=== PATIENT | female | born 1995 | race Caucasian/White ===

== ENCOUNTER 2016-08-16 19:06 | Inpatient (IN) | payer MEDICAID, OTHER ==
[~2016-08-16] VITALS: Ht 154.9 cm; Wt 63.6 kg
[2016-08-16 19:11] VITALS: BP 140/97; PULSE 100; RESP 20; O2SAT 96
[2016-08-16] MEDS ORDERED: BUPR150T12 PO (19:46)
[2016-08-16] MEDS ORDERED: ALPR0.254 PO (19:46)
--- NOTE | 2016-08-16 21:11 | ED.REPORT ---
HPI-Psychiatric Illness Date of Service Aug 16, 2016 ED Provider: Wojciech Ramirez DO A 20 year old female with a history of anxiety and depression presents to the ED with worsening depression, anxiety, and suicidal ideation onset five months ago. Two days [place] the patient [place], left a suicide note in her car, and almost jumped off the bridge but instead drove home. She attributes some of her suicidality to her fiance cheating on her one week ago and recently starting a new job. The patient also reports nausea, back pain, insomnia, and loss of appetite - she hasn't eaten in a week. The patient denies recently overdosing on medication, cutting her wrists, or other symptoms. She has never had a psychiatric admit. Nursing Notes Stated Complaint: MENTAL EVALUATION Chief Complaint: Psychiatric Complaint Nursing Notes Reviewed: Yes Allergies: Coded Allergies: No Known Allergies (Unverified , 08/16/16) Scheduled Bupropion ER (Bupropion ER) 150 Mg Tablet.er 150 MG PO BID Scheduled PRN Alprazolam (Alprazolam) 0.25 Mg Tablet 0.25 MG PO TID PRN PRN For Anxiety General Time Seen by MD: 21:00 Chief Complaint Suicidal ideation Hx Obtained From: Patient Arrived By: Walk-in Onset Occurred: More than a week ago... (Five months, worsening recently) Symptom Duration: Since onset Location: : Back lower: Back upper Quality: Painful Severity: Current: Moderate Severity: Maximum: Moderate Pertinent Negative: Relieved by nothing Related History: Reports: Anxiety, Depression Immunizations: Unknown Recent Healthcare: No recent doctor visit Similar Sx Previous: Yes Risk-Psychiatric Illness Suicide Risk Stratification RF Statements: Risk factors reviewed Past Medical History Past Medical History Anxiety Depression Past Surgical History None reported Smoking History Unknown if Ever Smoker Social History Other Social History: Good social support Ambulatory Status Independent Review of Systems Review of Systems Note: + Loss of appetite - no food for a week Constitutional: Denies: Fever Respiratory: Denies: Non-productive cough, Shortness of breath GI: Reports: Nausea, Denies: Diarrhea, Vomiting Psychiatric: Reports: Anxiety, Depression, Insomnia, Suicidal ideation Complete sys rev & neg: except as marked. Musculoskeletal: Reports: Back pain Physical Exam Initial Vital Signs Vital Signs (First) Date Time Temp Pulse Resp B/P Pulse Ox O2 Delivery O2 Flow Rate FiO2 08/16/16 19:11 36.5 100 20 140/97 96 Room Air Initial VS: Reviewed Head / Eyes: Atraumatic, Normocephalic ENT: Conjunctiva normal, No scleral icterus Neck: Supple, Full range of motion Respiratory: Breath sounds normal, Clear to auscultation, No respiratory distress Cardiovascular: Regular rate & rhythm, Heart sounds normal Abdomen / GI: Soft, Non-tender Skin: Warm, Dry, No cyanosis General/Constitutional: Awake, Alert Behavior: Positive: Tearful Neurologic: Oriented X3, Speech NL Psychiatric: Cognitive function NL Abnormal Mood/Affect: Positive: Hopeless Abnormal Thinking / Perception: Positive: Suicidal, with plan Interpretation & Diagnostics URINE DRUG SCREEN: + Benzodiazepines + Marijuana Otherwise Negative URINE : Negative URINE DIPSTICK: 1.015 sp gravity 6 pH Trace Protein Normal Glucose ++Moderate Ketones Normal Urobilinogen Otherwise Negative Lab Results Interpretation Result Diagram: 08/16/16 2300 Test 08/16/16 19:45 08/16/16 23:00 Hold Urine Received (Received) Sodium Level 138mEq/L (134-144) Potassium Level 3.9mEq/L (3.5-5.2) Chloride Level 99mEq/L (97-108) Carbon Dioxide Level 23mmol/L (18-29) Blood Urea Nitrogen 11mg/dL (6-20) Creatinine 0.82mg/dL (0.57-1.00) Estimat Glomerular Filtration Rate 126mL/min (>59) Glucose Level 85mg/dL (60-99) Calcium Level 9.3mg/dL (8.5-10.1) Total Bilirubin 0.9mg/dL (0.0-1.2) Aspartate Amino Transf (AST/SGOT) 12U/L (0-50) Alanine Aminotransferase (ALT/SGPT) 9U/L (0-32) Alkaline Phosphatase 56U/L (25-150) Total Protein 7.5g/dL (6.4-8.4) Albumin 4.7g/dL (3.4-5.0) Thyroid Stimulating Hormone (TSH) 2.790uIU/mL (0.450-4.500) Hold Haywood Top Tube Received (Received) Alcohols < 10mg/dL (0-10) Re-Eval/Medical Decision Re-Evaluation/Progress : Time of Eval: 21:15 Patient Status: Condition improved Re-Evaluation/Progress Note: Discussed with patient diagnosis and plan for social work evaluation in the morning. Care will be transferred to Dr. Crystal at change of shift. Consultation : Consulted With: rice farmworker Call Returned at: 21:00 Porcelain Turner: Agrees with eval, Agrees with plan Note: Unable to see patient tonight. Will evaluate tomorrow. Counseled Regarding: Diagnosis Discharge & Departure Shift Change Sign-Out Patient Care Transferred: Yes (Dr. Crystal) Discussed Complaint(s): Yes Laboratory Evaluation: Lab evaluation discussed Response to Therapy: Improved Impression: Primary Impression: Suicidal ideation Additional Impressions: Depression Depression Type: unspecified Qualified Code: F32.9 - Major depressive disorder, single episode, unspecified Anxiety Referrals: Meenu Humphries MD (PCP) Care Transferred to: Dr. Crystal Care Transferred at: 03:00 Scribe Attestation Portions of this note were transcribed by Sandy Blakely. I, Dr. Ramirez, personally performed the history, physical exam, and medical decision-making; I reviewed and confirmed the accuracy of the information in the transcribed note. Signed by: Jacob Hicks, 08/17/2016, 02:10 copies to: Meenu Humphries MD, Todd P DO Aug 16, 2016 21:10 SANDY BLAKELY Aug 16, 2016 21:26
[2016-08-16] MEDS ORDERED: LORazepam 0.5 mg Tablet PO ONE (21:15)
[2016-08-16 23:07] VITALS: BP 116/79; PULSE 68; RESP 16; O2SAT 100
[2016-08-17 06:48] VITALS: BP 114/86; PULSE 84; RESP 16; O2SAT 99
[2016-08-17 10:21] VITALS: BP 120/73; PULSE 79; RESP 14; O2SAT 98
[2016-08-17] MEDS ORDERED: Ondansetron 8 mg ODT Tablet PO ONE (10:40)
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
[2016-08-17] MEDS ORDERED: LORazepam 1 mg Tablet PO ONE (15:40)
[2016-08-17 15:54] VITALS: BP 116/78; PULSE 90; RESP 16; O2SAT 97
[2016-08-17 18:52] VITALS: BP 116/78; PULSE 90; RESP 16; O2SAT 97
--- NOTE | 2016-08-17 20:12 | NUR ---
Social Work: Certification Bed certification obtained for 4 days from Latoya Sarmiento. Latoya states auth paperwork will be faxed over in the AM of 08/18. SEBLE Villaseñor
[2016-08-17] MEDS ORDERED: ALPRAZolam 0.25 mg Tablet PO PRN (20:20)
[2016-08-17] MEDS ORDERED: Benzocaine-Menthol Lozenge 2/Pkg PO PRN (20:25)
[2016-08-17] MEDS ORDERED: Magnesium Hydroxide 10 mL Oral Concentration PO PRN (20:25)
[2016-08-17] MEDS ORDERED: Alum-Mag Hydrox-Simeth 30 mL Suspension PO PRN (20:25)
[2016-08-17] MEDS: buPROPion SR 150 mg ER12 Tablet PO SCH (20:29)
[2016-08-17] MEDS: LORazepam 1 mg Tablet PO PRN (20:39)
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
--- NOTE | 2016-08-18 02:46 | NUR ---
OBSERVATIONS Pt arrived on the unit anxious and tearful. Thoughts are well organized and pt communicates without issue. Pt appears fearful of milieu on the unit but is pleasant and cooperative with staff. Pt was offered food but declined. Pt was recorded asleep at approximately 2200 and remained asleep throughout the night. Maintained Q15 safety checks as directed.
--- NOTE | 2016-08-18 04:48 | NUR ---
Nursing Noc Pt noted as tearful upon start of shift. Cooperative with admission process and contracted to no self harm. Noted to be asleep at 2200 and remained asleep throughout the night, noted by Q15 minute safety checks. Continuing to monitor mood, behavior, and emotional state.
[2016-08-18] MEDS: buPROPion SR 150 mg ER12 Tablet PO SCH ×2 (08:03→20:30)
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
--- NOTE | 2016-08-18 14:19 | NUR ---
Nursing Day Shift- S- "I need to go home. I've been here 3 days and I haven't seen a Dr.!, I'm cut off from from friends and family, I feel more anxious here." O- Pt. was awake in her bed at 0700. She stated the above when asked about her night. Pt. was reminded she had arrived last evening, and told we have a phone. She requested discharge and reported she could keep herself safe at home. Dr. Thorne was informed. He spoke with the Pt., and she agreed to stay. Xanax 1 mg PO was ordered and given at 1110 today. She has been resting in her bed since that time, and declined lunch. A- Fearful of peers. Depression, isolating in her room. Able to contract for safety. P- Cont. TP
[2016-08-18] MEDS: ALPRAZolam 0.25 mg Tablet PO SCH ×2 (14:50→20:30)
--- NOTE | 2016-08-18 18:06 | NUR ---
[facility] Day Shift Pt only observed out in the milieu once during the shift, in the AM prior to breakfast. Pt appears pleasant and appropriate with staff and peers during this time. Pt spends the rest of the shift resting/reading in her room. Pt has declined all invitations to leave her room for group activities and meals. Pt appears anxious and occasionally distraught when engaged by staff. Pt was not observed eating any food throughout the shift.
--- NOTE | 2016-08-18 19:52 | NUR ---
Counseling/Bundle Clerk: S/O: Patient slept 7.5+ hours again last night per staff. She reports thoughts of suicide and sees suicide as the "only option" to her depression. She denies H/I. She denies auditory and visual hallucinations. Depression is 0/10 and anxiety was not rated. A: Patient is cooperative, overwhelmed, hopeless, helpless, poor insight, poor judgment. P: Follow care plan, coordinate out-patient providers.
--- NOTE | 2016-08-18 23:15 | NUR ---
Nurses Note Evening Patient has remained in her room during the day and has not eaten today per report. Patient was offered dinner and accepted a strawberry boost. Patient was unhappy with her room and stated she was fearful on the unit. Patient was encouraged to come to the multi-purpose room to visit with 3 female family members. Patient then expressed a desire to leave. MD was notified and a DMHP was contacted by directed by the MD. The millwright supervisor was notified regarding the family members remaining on the unit until the DMHP arrived. The DMHP was delayed at [facility] and arrived at [id number]. The patient and the family were encouraged to write affidavits regarding plans to provide safety for the patient if she were to discharged. The DM is evaluating the record at this time. Addendum: 08/18/16 at 2340 by ALEX PHILIPPE RN Amended: Links added.
[2016-08-19] MEDS: LORazepam 1 mg Tablet PO PRN (02:10)
--- NOTE | 2016-08-19 06:01 | NUR ---
Nursing Note 7pm to 7am Utilities Ground Worker [facility] finished evaluating pt at approx 0200. He decided not to detain pt and she agreed to stay to see Dr. Thorne in the a.m. rather than leave AMA because of concern that insurance co would not pay for stay if she did. Pt received Ativan 1mg and ambien 5mg at 0204 and slept without interruption. Monitored pt with q15 minute checks for safety, location and accountability
[2016-08-19] MEDS ORDERED: PT Own Med->Oral Medication PO SCH (08:30)
[2016-08-19] MEDS: ALPRAZolam 0.25 mg Tablet PO SCH (10:05)
[2016-08-19] MEDS: buPROPion SR 150 mg ER12 Tablet PO SCH (10:06)
--- NOTE | 2016-08-19 10:31 | NUR ---
Supervisor Offset Plate Preparation./ c.m. S.:"I'm feeling better." O.: met with pt. in her room. She slept good last night after getting a sleeping aid. She denied SI/HI. She completed Safety plan. She also was able "to think about" her "life and appreciate the freedom." She has follow up appt. for meds with her PCP, Dr. Yandel Monique MD on August 21 at 13:30 at [facility] ([phone]). Pt.'s parents are waiting for her to come home. Engrosser worked with pt. on re-grounding skills. A.: pt. is cooperative, pleasant, wants to go home. P.: monitor behavior, follow care plan.
[2016-08-19] MEDS ORDERED: ALPR0.254 PO (11:24)
[2016-08-19] MEDS ORDERED: FLUO10CA20 PO (11:24)
[2016-08-19] MEDS ORDERED: BUPR150T8 PO (11:24)
--- NOTE | 2016-08-19 11:27 | PCM.DIMED ---
Discharge Instructions Date of Service Aug 19, 2016 Dates of Hospitalization Aug 17, 2016 at 18:52 Discharge Diagnosis Discharge Diagnosis AXIS I: 1. Major depressive disorder. 2. Post-traumatic stress disorder. AXIS II: None. AXIS III: None. AXIS IV: Severe. AXIS V: 40 Medication Instructions I Strongly encouraged patient to follow up with outpatient care: 1-Recommended patient takes medication as prescribed and not alter this unless under the direct care of a provider. 2-Recommend client refrain from recreational drugs and alcohol while taking psychiatric medications. 3--Recommend patient attempt to find a therapist or group to deal with impulse control and interpersonal relationship conflicts Diet No restrictions Activity No restrictions Call your provider Fever or Chills Patient Instructions Follow-up plan Plan to follow up with primary care physician Dr. Robert Humphries primary care [facility] 08/21/2016 Follow-up with PCP in: 2 weeks Nabil Thorne MD Aug 19, 2016 11:26
--- NOTE | 2016-08-19 11:53 | NUR ---
Nursing Discharge Note: Patient cooperative with discharge process. Acknowledges understanding of d/c instructions and has a copy with them upon leaving unit at 1135. After signing the competency statement patient stated "I'm sorry, but I don't think I should sign this because of the way I was treated last night". Original signed copy in chart. Belongings accounted for and with patient. Prescriptions given to patient to fill at the pharmacy of her choice. Patient denies harmful thoughts and hallucinations at this time. Person referred to as patient's mother wanting to talk to patient's nurse after patient had left the unit. Requested a copy of the competency statement which was not given. Stated "I'm appalled at the way they treated her last night. And I'm appalled that you aren't appalled when I tell you about it." Person then left via elevator.
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
== END 2016-08-19 11:35 | disposition home or self-care (01) | DRG 881 ==
LOC: SED 19:06 → MHC 08-17 18:52
PROVIDERS: ADMIT Psychiatry & Neurology Psychiatry; ATTEND Psychiatry & Neurology Psychiatry
DX: F32.9 Major depressive disorder, single episode, unspecified (principal); R45.851 Suicidal ideations; Z62.810 Personal history of physical and sexual abuse in childhood; F43.10 Post-traumatic stress disorder, unspecified